=== PATIENT | female | born 1995 | race Two or more races ===

== ENCOUNTER 2023-03-16 12:16 | Emergency (ER) | payer OTHER ==
[2023-03-16 12:26] VITALS: BP 124/82; PULSE 81; RESP 19; TEMP 98.2; BMI 22.8
[2023-03-16] MEDS ORDERED: ACETAMINOPHEN 500 MG TABLET (FP) PO ONE (13:33)
[2023-03-16] MEDS ORDERED: KETOROLAC TROMETHAMINE 30 MG/1 ML VIAL IM ONE (13:34)
[2023-03-16] MEDS ORDERED: CYCLOBENZAPRINE HCL 10 MG TABLET (FP) PO ONE (13:34)
[2023-03-16] MEDS ORDERED: LIDOCAINE 5% TOPICAL PATCH TP ONE (13:35)
[2023-03-16] MEDS ORDERED: LIDOCAINE 5% TOPICAL PATCH ONE (14:13)
[2023-03-16] MEDS ORDERED: CYCLOBENZAPRINE HCL 10 MG TABLET (FP) ONE (14:14)
[2023-03-16] MEDS ORDERED: ACETAMINOPHEN 500 MG TABLET (FP) ONE (14:14)
[2023-03-16] MEDS ORDERED: KETOROLAC TROMETHAMINE 15 MG/ML VIAL ONE (14:14)
[2023-03-16] MEDS ORDERED: LIDOCAINE PATCH REMOVAL MC ONE (22:00)
== END 2023-03-16 16:24 | disposition home or self-care (01) ==
LOC: JER 12:16
PROC: 3E0233Z Introduction of Anti-inflammatory into Muscle, Percutaneous Approach (ICD-10-PCS; principal; 2023-03-16)
DX: R51.9 Headache, unspecified (principal); M54.2 Cervicalgia
CPT/HCPCS: 99284-25

== ENCOUNTER 2023-03-30 18:12 | Emergency (ER) | payer OTHER ==
[2023-03-30 18:29] VITALS: BP 123/69; PULSE 120; RESP 18; TEMP 99.1; BMI 22.8
== END 2023-03-30 22:16 | disposition home or self-care (01) ==
LOC: JERFT 18:12
DX: S32.10XA Unspecified fracture of sacrum, initial encounter for closed fracture (principal); M53.3 Sacrococcygeal disorders, not elsewhere classified; W18.39XA Other fall on same level, initial encounter; W54.8XXA Other contact with dog, initial encounter; Y93.01 Activity, walking, marching and hiking
CPT/HCPCS: 72220-TC-FY; 99283-25